=== PATIENT | female | born 1960 | race Two or more races ===

== ENCOUNTER 2020-06-22 08:26 | Outpatient (CLI) | payer OTHER | END 2020-06-22 23:59 | disposition home or self-care (01) | LOC: LAB 08:26 | PROVIDERS: ATTEND Student in an Organized Health Care Education/Training Program | DX: Z01.812 Encounter for preprocedural laboratory examination (principal); Z11.59 Encounter for screening for other viral diseases; M94.261 Chondromalacia, right knee ==

== ENCOUNTER 2020-06-27 08:01 | Day surgery (SDC) | payer OTHER ==
[~2020-06-27] VITALS: Ht 167.6 cm; Wt 114.3 kg
--- NOTE | 2020-06-27 08:20 | NUR ---
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 Consent forms signed and placed in front of chart, pre op check list completed.
[2020-06-27 08:25] VITALS: BP 187/98
[2020-06-27] MEDS ORDERED: TRAM50TA2 PO (08:30)
[2020-06-27] MEDS ORDERED: LISI10TA5 PO (08:30)
--- NOTE | 2020-06-27 09:14 | NUR ---
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
[2020-06-27] MEDS ORDERED: LIDOCAINE 1% INJ 50 ML MDV IJ ONE (09:41)
[2020-06-27] MEDS ORDERED: MORPHINE SULFATE/PF 10 MG/10ML (1MG/ML) AMPUL ONE (10:09)
[2020-06-27] MEDS ORDERED: HYDROMORPHONE 1 MG/1 ML DISP.SYRIN ONE (10:38)
--- NOTE | 2020-06-27 11:15 | NUR ---
MS/RN Back to room Patient back in room following surgery. Vital signs stable, blood pressure now back down to within normal range. No fevers noted, pain well controlled at this time. Dressing to right knee dry and intact. Discharge orders written by Dr Goldberg.
--- NOTE | 2020-06-27 12:15 | NUR ---
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 Educated as to the importance of following up with Dr Goldberg in office in two weeks, stated understanding. Made aware of signs and symptoms to be on the look out for that may indicate infection. These include increase in swelling, temperature, increase in pain or redness around incision sites, patient stated understanding. Heplock and name bands removed, provided with copies of medical record and exit care. Escorted to main lobby by [facility]. Transport being provided by patient's niece.
--- NOTE | 2020-06-27 12:30 | NUR ---
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
== END 2020-06-27 16:00 | disposition home or self-care (01) ==
LOC: DS 08:01 → MED 08:09 → UNDOADMIN 08:09 → UNDODISIN 12:30 → DS 16:00
PROVIDERS: ATTEND Student in an Organized Health Care Education/Training Program
DX: S83.281A Other tear of lateral meniscus, current injury, right knee, initial encounter (principal); M94.261 Chondromalacia, right knee; X58.XXXA Exposure to other specified factors, initial encounter; Y93.89 Activity, other specified; Y92.89 Other specified places as the place of occurrence of the external cause; Y99.8 Other external cause status; I10 Essential (primary) hypertension; Z79.899 Other long term (current) drug therapy
CPT/HCPCS: 29881; 87081; A4217; A6253 ×2; J0690; J1170; J1885; J2274; J2405; J2704; J2765; J3490 ×2; G0378